=== PATIENT | female | born 1940 ===

== ENCOUNTER 2016-11-13 16:09 | Emergency (ER) | payer OTHER ==
[~2016-11-13] VITALS: Ht 162.6 cm; Wt 65.3 kg
[2016-11-13] MEDS ORDERED: [UNRECOGNIZED DRUG - REMARK] (16:23)
[2016-11-13] MEDS ORDERED: [UNRECOGNIZED DRUG - REMARK] (16:23)
--- NOTE | 2016-11-13 17:31 | NUR ---
Pt moved to room 5a, Dr. Carey speaking with the pt and family.
--- NOTE | 2016-11-13 17:53 | NUR ---
Pt and family were given verbal ACI by Dr. Carey but they left before written ACI can be given.
== END 2016-11-13 17:55 | disposition home or self-care (01) ==
LOC: ER 16:09
DX: R60.0 Localized edema (principal)
CPT/HCPCS: 93971; 99284; A4663